=== PATIENT | male | born 1975 | race Native Hawaiian/Other Pacific Islander ===

== ENCOUNTER 2021-10-23 16:46 | Emergency (ER) | payer OTHER ==
[~2021-10-23] VITALS: Ht 172.7 cm; Wt 77.1 kg
[2021-10-23 17:05] VITALS: TEMP 98.2
[2021-10-23 19:00] VITALS: BP 128/75
== END 2021-10-23 19:00 | disposition home or self-care (01) ==
LOC: ED 16:46
DX: M54.59 Other low back pain (principal); M53.3 Sacrococcygeal disorders, not elsewhere classified; N50.89 Other specified disorders of the male genital organs
CPT/HCPCS: 81000; 99282

== ENCOUNTER 2021-10-24 16:43 | Emergency (ER) | payer OTHER ==
[~2021-10-24] VITALS: Ht 172.7 cm; Wt 77.1 kg
[2021-10-24 16:52] VITALS: BP 134/75; TEMP 97.1
== END 2021-10-24 17:20 | disposition home or self-care (01) ==
LOC: ED 16:43
DX: J06.9 Acute upper respiratory infection, unspecified (principal); Z20.822 Contact with and (suspected) exposure to COVID-19
CPT/HCPCS: 87635; 99282; U0003